=== PATIENT | male | born 1985 | race Caucasian/White ===

== ENCOUNTER 2021-04-12 15:10 | Emergency (ER) | payer MEDICAID ==
[~2021-04-12] VITALS: Ht 188 cm; Wt 84.8 kg
[2021-04-12 15:29] VITALS: BP 99/56
[2021-04-12] MEDS ORDERED: KETOROLAC 30 MG/ML VIAL IM ONE (15:45)
[2021-04-12] MEDS ORDERED: IBUP-2213 PO (16:46)
[2021-04-12] MEDS ORDERED: PHEN177S30 PO (16:46)
[2021-04-12 16:57] VITALS: BP 99/56
== END 2021-04-12 17:00 | disposition home or self-care (01) ==
LOC: MED 15:10
DX: J02.8 Acute pharyngitis due to other specified organisms (principal); B97.89 Other viral agents as the cause of diseases classified elsewhere; Z79.899 Other long term (current) drug therapy
CPT/HCPCS: 87081; 87804; 96372; 99283; J1885